=== PATIENT | male | born 1990 | race American Indian/Alaskan Native ===

== ENCOUNTER 2018-11-10 13:31 | Emergency (ER) | payer MEDICAID ==
[~2018-11-10] VITALS: Ht 180.3 cm; Wt 83.9 kg
[2018-11-10 13:33] VITALS: BP_SYST 158
--- NOTE | 2018-11-10 13:38 | NUR ---
Patient to ER bed 1 to gown for evaluation. Side rails up. Report given to Reza JOEL.
--- NOTE | 2018-11-10 13:45 | NUR ---
Patient came to the ED with chest pain since Saturday. Patient stated that he tried meth for the first time on Saturday, and the chest pain started on Saturday. Patient is A&Ox4. No neuro deficits noted. Patient is in lowest postition in bed.
[2018-11-10] MEDS ORDERED: NACL 0.9% 1,000 ML IV ONE (13:47)
--- NOTE | 2018-11-10 13:55 | NUR ---
ER Dr. Noonan at bedside examining patient.
[2018-11-10 14:42] LABS: BASOPHILS % (AUTO) 0.5 % (0.0-2.0); EOSINOPHILS # (AUTO) 0.6 K/uL (0.0-0.4); EOSINOPHILS % (AUTO) 8.3 % (0.0-4.0); HEMATOCRIT 45.3 % (36-54); HEMOGLOBIN 15.1 g/dL (14.0-18.0); LYMPHOCYTES % (AUTO) 25.1 % (20.5-51.5); MEAN CORPUSCULAR HEMOGLOBIN 29 pg (27-31); MEAN CORPUSCULAR HGB CONC 33 % (32-36); MEAN CORPUSCULAR VOLUME 87 fL (79.0-98.0); MONOCYTES # (AUTO) 0.3 K/uL (0.0-1.0); MONOCYTES % (AUTO) 4.4 % (1.7-9.3); NEUTROPHILS # (AUTO) 4.8 K/uL (1.8-7.7); NEUTROPHILS % (AUTO) 61.7 % (40.0-70.0); PLATELET COUNT (AUTO) 223 K/uL (130-430); RED BLOOD CELL COUNT(AUTO) 5.22 MIL/uL (4.2-6.2); RED CELL DISTRIBUTION WIDTH 13.2 % (9.0-15.0); WHITE BLOOD COUNT (AUTO) 7.8 K/uL (4.8-10.8)
--- NOTE | 2018-11-10 14:45 | NUR ---
Patient is laying comfortably in bed. Patient states that symptoms have improved and he feels better. D/C'd meds due to improved symptoms.
[2018-11-10 14:54] LABS: ANION GAP 9 (5-15); CALCIUM 9.6 mg/dL (8.4-11.0); CHLORIDE 103 mmol/L (98-107); CREATININE 1.31 mg/dL (0.55-1.30); GLUCOSE 96 mg/dL (70-99); POTASSIUM 4.6 mmol/L (3.5-5.1); SODIUM SERUM 138 mmol/L (136-145); UREA NITROGEN, BLOOD 19 mg/dL (8-21)
[2018-11-10 14:55] LABS: GFR AFRICAN AMERICAN 83 mL/min (>90)
[2018-11-10 15:03] LABS: ALANINE AMINOTRANSFERASE 29 U/L (12-78); ASPARTATE AMINOTRANSFERASE 10 U/L (10-37); TOTAL BILIRUBIN 0.5 mg/dL (0.0-1.0)
[2018-11-10] MEDS ORDERED: LORazepam 2 MG/ML VIAL (FOR ER USE) IVP ONE (15:15)
[2018-11-10 15:50] VITALS: BP_SYST 128
--- NOTE | 2018-11-10 15:50 | NUR ---
Patient given written and verbal discharge instructions and verbalizes understanding. ER MD Noonan discussed with patient the results and treatment provided. Patient in stable condition. ID arm band removed. Rx of Xanax given. Patient educated on pain management and to follow up with PMD in 2-3 days. Pain Scale 0/10 Opportunity for questions provided and answered. Medication side effect fact sheet provided.
== END 2018-11-10 15:50 | disposition home or self-care (01) ==
LOC: SED 13:31
DX: F15.90 Other stimulant use, unspecified, uncomplicated (principal); I10 Essential (primary) hypertension; F32.9 Major depressive disorder, single episode, unspecified; F17.210 Nicotine dependence, cigarettes, uncomplicated
CPT/HCPCS: 36415; 71045; 80053; 84484; 85025; 93005; 99284; J2060